=== PATIENT | female | born 1995 | race Caucasian/White ===

== ENCOUNTER 2023-09-01 11:54 | Inpatient (IN) | payer OTHER ==
[2023-09-01 12:49] VITALS: RESP 16; BMI 18.5
[2023-09-01] MEDS ORDERED: hydrOXYzine PAMOATE 25 MG CAPSULE (FP) PO PRN (13:54)
[2023-09-01] MEDS ORDERED: BISMUTH SUBSALICYLATE 524 MG/30 ML PO PRN (13:54)
[2023-09-01] MEDS ORDERED: guaiFENesin 600 MG TABLET.ER (FP) PO PRN (13:54)
[2023-09-01] MEDS ORDERED: MAGNESIUM HYDROX 2400MG/30ML ORAL SUSPENSION 30 ML CUP PO PRN (13:54)
[2023-09-01] MEDS ORDERED: POLYETHYLENE GLYCOL (HEALTHYLAX) 3350 17 GM PACKET PO PRN (13:54)
[2023-09-01] MEDS ORDERED: P-EPHED 60MG/TRIPROLIDI 2.5MG TABLET PO PRN (13:54)
[2023-09-01] MEDS ORDERED: LOPERAMIDE HCL 2 MG CAPSULE PO PRN (13:54)
[2023-09-01] MEDS ORDERED: IBUPROFEN 400 MG TABLET (FP) PO PRN (13:54)
[2023-09-01] MEDS ORDERED: BENZOCAINE/MENTHOL (CHLORASEPTIC ) LOZENGE MM PRN (13:54)
[2023-09-01] MEDS ORDERED: BISACODYL 5 MG TABLET.DR (FP) PO PRN (13:54)
[2023-09-01] MEDS ORDERED: MAG HYDROX/AL HYDROX/SIMETH 30 ML UNIT-DOSE CUP PO PRN (13:54)
[2023-09-01] MEDS ORDERED: ACETAMINOPHEN 325 MG TABLET (FP) PO PRN (13:54)
[2023-09-01] MEDS ORDERED: BENZONATATE 200 MG CAPSULE PO PRN (13:54)
[2023-09-01] MEDS ORDERED: IBUPROFEN 600 MG TABLET (FP) PO PRN (13:54)
[2023-09-01] MEDS ORDERED: NALOXONE HCL 0.4 MG/ML VIAL IM PRN (13:54)
[2023-09-01] MEDS ORDERED: DOCUSATE SODIUM 100 MG CAPSULE (FP) PO PRN (13:54)
[2023-09-01] MEDS ORDERED: NICOTINE POLACRILEX 2 MG LOZENGE BC PRN (13:54)
[2023-09-01] MEDS ORDERED: NALOXONE (NARCAN) HCL 4 MG/0.1 ML SPRAY NS PRN (13:54)
[2023-09-01] MEDS ORDERED: DICYCLOMINE HCL 10 MG CAPSULE PO PRN (13:54)
[2023-09-01] MEDS ORDERED: NICOTINE POLACRILEX 2 MG GUM BUC PRN (13:54)
[2023-09-01] MEDS: METHOCARBAMOL 500 MG TABLET PO PRN (18:22)
[2023-09-01] MEDS: ONDANSETRON *ODT* 4 MG TABLET SL PRN (18:22)
[2023-09-01] MEDS: methaDONE HCL 10 MG TABLET (FOR DETOX USE ONLY) PO ONE (19:35)
[2023-09-01] MEDS: THIAMINE 100 MG TABLET PO SCH (22:52)
[2023-09-01] MEDS: MELATONIN 5 MG TABLETS PO SCH (22:52)
[2023-09-01] MEDS: cloNIDine HCL 0.1 MG TABLET PO PRN (22:53)
[2023-09-02 07:01] VITALS: BP 148/79; PULSE 60; TEMP 97.6
[2023-09-02] MEDS ORDERED: PRENATAL VITAMINS W/ FOLIC ACID TABLET (FP) PO SCH (10:00)
[2023-09-03] MEDS ORDERED: methaDONE HCL 10 MG TABLET (FOR DETOX USE ONLY) PO ONE (10:00)
[2023-09-05] MEDS ORDERED: methaDONE HCL 10 MG TABLET (FOR DETOX USE ONLY) PO ONE (10:00)
== END 2023-09-02 09:18 | disposition left against medical advice (07) | DRG 770 ==
LOC: YASAS 11:54 → Y6N 15:52
PROVIDERS: ADMIT Allergy & Immunology; ATTEND Surgery
PROC: HZ2ZZZZ Detoxification Services for Substance Abuse Treatment (ICD-10-PCS; principal; 2023-09-01)
DX: F11.23 Opioid dependence with withdrawal (principal); F17.210 Nicotine dependence, cigarettes, uncomplicated
CPT/HCPCS: 80305; 80307; 93005; 93010; Q0162

== ENCOUNTER 2023-10-18 11:05 | Inpatient (IN) | payer OTHER ==
[2023-10-18 11:48] VITALS: BMI 18.6
[2023-10-18] MEDS ORDERED: NALOXONE HCL 0.4 MG/ML VIAL IM PRN (12:08)
[2023-10-18] MEDS ORDERED: hydrOXYzine PAMOATE 25 MG CAPSULE (FP) PO PRN (12:08)
[2023-10-18] MEDS ORDERED: POLYETHYLENE GLYCOL (HEALTHYLAX) 3350 17 GM PACKET PO PRN (12:08)
[2023-10-18] MEDS ORDERED: NICOTINE POLACRILEX 2 MG LOZENGE BC PRN (12:08)
[2023-10-18] MEDS ORDERED: NICOTINE POLACRILEX 2 MG GUM BUC PRN (12:08)
[2023-10-18] MEDS ORDERED: DICYCLOMINE HCL 10 MG CAPSULE PO PRN (12:08)
[2023-10-18] MEDS ORDERED: IBUPROFEN 600 MG TABLET (FP) PO PRN (12:08)
[2023-10-18] MEDS ORDERED: MAGNESIUM HYDROX 2400MG/30ML ORAL SUSPENSION 30 ML CUP PO PRN (12:08)
[2023-10-18] MEDS ORDERED: NALOXONE (NARCAN) HCL 4 MG/0.1 ML SPRAY NS PRN (12:08)
[2023-10-18] MEDS ORDERED: BISMUTH SUBSALICYLATE 262 MG/15 ML BTL PO PRN (12:08)
[2023-10-18] MEDS ORDERED: ACETAMINOPHEN 325 MG TABLET (FP) PO PRN (12:08)
[2023-10-18] MEDS ORDERED: guaiFENesin 600 MG TABLET.ER (FP) PO PRN (12:08)
[2023-10-18] MEDS ORDERED: P-EPHED 60MG/TRIPROLIDI 2.5MG TABLET PO PRN (12:08)
[2023-10-18] MEDS ORDERED: LOPERAMIDE HCL 2 MG CAPSULE PO PRN (12:08)
[2023-10-18] MEDS ORDERED: MAG HYDROX/AL HYDROX/SIMETH 30 ML UNIT-DOSE CUP PO PRN (12:08)
[2023-10-18] MEDS ORDERED: BENZOCAINE/MENTHOL (CHLORASEPTIC ) LOZENGE MM PRN (12:08)
[2023-10-18] MEDS ORDERED: IBUPROFEN 400 MG TABLET (FP) PO PRN (12:08)
[2023-10-18] MEDS ORDERED: BENZONATATE 200 MG CAPSULE PO PRN (12:08)
[2023-10-18] MEDS: THIAMINE 100 MG TABLET PO SCH (21:44)
[2023-10-18] MEDS: METHOCARBAMOL 500 MG TABLET PO PRN (21:44)
[2023-10-18] MEDS: MELATONIN 5 MG TABLETS PO SCH (21:44)
[2023-10-19] MEDS ORDERED: cloNIDine HCL 0.1 MG TABLET PO PRN (08:54)
[2023-10-19] MEDS ORDERED: diazePAM 5 MG TABLET PO PRN (08:55)
[2023-10-19] MEDS: methaDONE HCL 10 MG TABLET (FOR DETOX USE ONLY) PO ONE (09:44)
[2023-10-19] MEDS: PRENATAL VITAMINS W/ FOLIC ACID TABLET (FP) PO SCH (09:44)
[2023-10-20] MEDS: ONDANSETRON *ODT* 4 MG TABLET SL PRN (01:19)
[2023-10-20 06:53] VITALS: RESP 16
[2023-10-20 08:55] VITALS: BP 121/68; PULSE 64; TEMP 97.1
[2023-10-21] MEDS ORDERED: methaDONE HCL 10 MG TABLET (FOR DETOX USE ONLY) PO ONE (10:00)
[2023-10-23] MEDS ORDERED: methaDONE HCL 10 MG TABLET (FOR DETOX USE ONLY) PO ONE (10:00)
== END 2023-10-20 09:10 | disposition left against medical advice (07) | DRG 770 ==
LOC: YASAS 11:05 → Y3N 14:10
PROVIDERS: ADMIT Allergy & Immunology; ATTEND Surgery
PROC: HZ2ZZZZ Detoxification Services for Substance Abuse Treatment (ICD-10-PCS; principal; 2023-10-18)
DX: F11.23 Opioid dependence with withdrawal (principal); F17.210 Nicotine dependence, cigarettes, uncomplicated
CPT/HCPCS: 80305; 81025; Q0162

== ENCOUNTER 2023-12-09 10:22 | Inpatient (IN) | payer OTHER ==
[2023-12-09 10:54] VITALS: BMI 19.2
[2023-12-09] MEDS ORDERED: BISMUTH SUBSALICYLATE 262 MG/15 ML BTL PO PRN (11:27)
[2023-12-09] MEDS ORDERED: cloNIDine HCL 0.1 MG TABLET PO PRN (11:27)
[2023-12-09] MEDS ORDERED: BENZONATATE 200 MG CAPSULE PO PRN (11:27)
[2023-12-09] MEDS ORDERED: BENZOCAINE/MENTHOL (CHLORASEPTIC ) LOZENGE MM PRN (11:27)
[2023-12-09] MEDS ORDERED: MAG HYDROX/AL HYDROX/SIMETH 30 ML UNIT-DOSE CUP PO PRN (11:27)
[2023-12-09] MEDS ORDERED: ACETAMINOPHEN 325 MG TABLET (FP) PO PRN (11:27)
[2023-12-09] MEDS ORDERED: NICOTINE POLACRILEX 2 MG GUM BUC PRN (11:27)
[2023-12-09] MEDS ORDERED: guaiFENesin 600 MG TABLET.ER (FP) PO PRN (11:27)
[2023-12-09] MEDS ORDERED: IBUPROFEN 600 MG TABLET (FP) PO PRN (11:27)
[2023-12-09] MEDS ORDERED: DICYCLOMINE HCL 10 MG CAPSULE PO PRN (11:27)
[2023-12-09] MEDS ORDERED: NALOXONE (NARCAN) HCL 4 MG/0.1 ML SPRAY NS PRN (11:27)
[2023-12-09] MEDS ORDERED: MAGNESIUM HYDROX 2400MG/30ML ORAL SUSPENSION 30 ML CUP PO PRN (11:27)
[2023-12-09] MEDS ORDERED: LOPERAMIDE HCL 2 MG CAPSULE PO PRN (11:27)
[2023-12-09] MEDS ORDERED: POLYETHYLENE GLYCOL (HEALTHYLAX) 3350 17 GM PACKET PO PRN (11:27)
[2023-12-09] MEDS ORDERED: IBUPROFEN 400 MG TABLET (FP) PO PRN (11:27)
[2023-12-09] MEDS: methaDONE HCL 10 MG TABLET (FOR DETOX USE ONLY) PO ONE (12:18)
[2023-12-09] MEDS: METHOCARBAMOL 500 MG TABLET PO PRN (12:19)
[2023-12-09] MEDS: hydrOXYzine PAMOATE 25 MG CAPSULE (FP) PO PRN (12:19)
[2023-12-09 16:52] VITALS: RESP 16
[2023-12-09] MEDS: ONDANSETRON *ODT* 4 MG TABLET SL PRN (17:44)
[2023-12-09] MEDS: THIAMINE 100 MG TABLET PO SCH (21:35)
[2023-12-09] MEDS: MELATONIN 5 MG TABLETS PO SCH (21:35)
[2023-12-10] MEDS: PRENATAL VITAMINS W/ FOLIC ACID TABLET (FP) PO SCH (09:32)
[2023-12-10] MEDS: NICOTINE 14 MG/24 HOURS TOPICAL PATCH TD SCH (09:35)
[2023-12-10 12:39] VITALS: BP 95/57; PULSE 76; TEMP 97.7
[2023-12-10] MEDS: NALOXONE (NYS OPIOID OVERDOSE PROGRAM) 4 MG/0.1 ML SPRAY NS ONE (12:54)
[2023-12-10] MEDS ORDERED: NALOXONE (NYS OPIOID OVERDOSE PROGRAM) 4 MG/0.1 ML SPRAY NS ONE (14:23)
[2023-12-10] MEDS ORDERED: NALOXONE (NYS OPIOID OVERDOSE PROGRAM) 4 MG/0.1 ML SPRAY NS PRN (14:34)
[2023-12-11] MEDS ORDERED: methaDONE HCL 10 MG TABLET (FOR DETOX USE ONLY) PO ONE (10:00)
[2023-12-13] MEDS ORDERED: methaDONE HCL 10 MG TABLET (FOR DETOX USE ONLY) PO ONE (10:00)
== END 2023-12-10 14:48 | disposition left against medical advice (07) | DRG 770 ==
LOC: YASAS 10:22 → Y3N 11:49
PROVIDERS: ADMIT Allergy & Immunology; ATTEND Surgery
PROC: HZ2ZZZZ Detoxification Services for Substance Abuse Treatment (ICD-10-PCS; principal; 2023-12-09)
DX: F11.23 Opioid dependence with withdrawal (principal); F17.210 Nicotine dependence, cigarettes, uncomplicated; I10 Essential (primary) hypertension; J45.20 Mild intermittent asthma, uncomplicated; G40.909 Epilepsy, unspecified, not intractable, without status epilepticus; M54.50 Low back pain, unspecified; G89.29 Other chronic pain
CPT/HCPCS: 80305; 80307; 81025; Q0162